=== PATIENT | female | born 1975 ===

== ENCOUNTER 2025-02-13 05:08 | Day surgery (SDC) | payer OTHER ==
[2025-02-08 07:31] VITALS: BP 127/84
[~2025-02-13] VITALS: Ht 160 cm; Wt 92.5 kg
[~2025-02-13 05:08] MED LIST: RIZATRIPTAN10 MG PO; TOPIRAMATE ER50 M1 PO
[2025-02-13] MEDS ORDERED: CIPROFLOXACIN IN 5 % DEXTROSE 400 MG/200 ML PIGGYBAG IV ONE (07:13)
[2025-02-13] MEDS ORDERED: SUGAMMADEX SODIUM 200 MG/2 ML VIAL IV ONE (09:06)
[2025-02-13] MEDS ORDERED: MORPHINE SULFATE 4 MG/ML VIAL IV ONE (10:20)
== END 2025-02-13 12:45 | disposition home or self-care (01) ==
LOC: CIR.AMB 05:08
PROVIDERS: ATTEND Surgery
DX: K43.6 Other and unspecified ventral hernia with obstruction, without gangrene (principal); Z88.0 Allergy status to penicillin; Z88.6 Allergy status to analgesic agent; Z91.013 Allergy to seafood
CPT/HCPCS: 49594; C1781